=== PATIENT | female | born 1955 | race Caucasian/White ===

== ENCOUNTER 2016-09-17 11:33 | Emergency (ER) | payer OTHER ==
[~2016-09-17] VITALS: Ht 175.3 cm; Wt 70.0 kg
[~2016-09-17 11:33] MED LIST: ASPI325T PO; ESTR0.5T9 PO; FISH1000 PO; TAB-TAB PO; VITA500T10 PO; [UNRECOGNIZED DRUG - OTHER]
[2016-09-17 11:35] VITALS: BP 167/74; PULSE 58; RESP 24; TEMP 97.7; O2SAT 100
[2016-09-17] MEDS ORDERED: SODIUM CHLORIDE 0.9% FLUSH 5 ML FLUSH IVF PRN (11:45)
[2016-09-17 12:05] VITALS: RESP 18; O2SAT 99
--- NOTE | 2016-09-17 12:28 | PD ---
HPI Chief Complaint: GI Complaint Time Seen by Provider: 11:41 Travel History International Travel<30 days: No Contact w/Intl Traveler<30days: No Traveled to known affect area: No History of Present Illness HPI Patient is a 60-year-old female with abdominal cramping on and off for the past 6-8 months presents emergency department for evaluation of acute abdominal cramping starting yesterday. Patient states it primarily in the left lower quadrant. Patient states she's been seen by floor tiling professional who states that something is running her abdomen but they have not been able to find out what yet. She does endorse intermittent diarrhea as well as nausea and nonbilious nonbloody vomiting. Patient states she's not had any recently however.. States that her gastrologist put her on MiraLAX to help her with her regulation. States the pain waxes and wanes. PFSH Past Medical History Diabetes: No Gastrointestinal Disorders: Yes ("GAS PROBLEMS") Hypertension: No Past Surgical History Abdominal Surgery: Yes (HYSTERECTOMY) Hysterectomy: Yes Other Surgery: Yes (GOITER REMOVAL, HEMMORHOIDECTOMY) Social History Alcohol Use: Yes (OCCASIONAL) Tobacco Use: No Substance Use: No Allergies-Medications (Allergen,Severity, Reaction): Coded Allergies: No Known Allergies (Unverified , 01/07/09) Reported Meds & Prescriptions Reported Meds & Active Scripts Active Zofran Odt (Ondansetron Odt) 4 Mg Tab 4 Mg SL Q6HR PRN Bentyl (Dicyclomine HCl) 20 Mg Tab 20 Mg PO TID PRN Reported Fish Oil 1000 mg ([place]-3 Fatty Acids) 1 Cap Cap 1,000 Mg PO DAILY Multi Vitamin (Multiple Vitamin) 1 Tab Tab 1 Tab PO DAILY Estrace (Estradiol) 1 Mg Tab 1 Mg PO DAILY Aspirin Adult Low Strength (Aspirin) 81 Mg Tabdr 81 Mg PO EVERY OTHER DAY Vitamin C (Ascorbic Acid) 500 Mg Tab 500 Mg PO DAILY Review of Systems Except as stated in HPI: all other systems reviewed are Neg Physical Exam Narrative GENERAL: Well developed well-nourished no apparent distress SKIN: Warm and dry. HEAD: Atraumatic. Normocephalic. EYES: Pupils equal and round. No scleral icterus. No injection or drainage. ENT: No nasal bleeding or discharge. Mucous membranes pink and moist. NECK: Trachea midline. No JVD. CARDIOVASCULAR: Regular rate and rhythm. No murmur appreciated. RESPIRATORY: No accessory muscle use. Clear to auscultation. Breath sounds equal bilaterally. GASTROINTESTINAL: Abdomen soft, non-tender, nondistended. Hepatic and splenic margins not palpable. MUSCULOSKELETAL: No obvious deformities. No clubbing. No cyanosis. No edema. NEUROLOGICAL: Awake and alert. No obvious cranial nerve deficits. Motor grossly within normal limits. Normal speech. PSYCHIATRIC: Appropriate mood and anxious affect; insight and judgment normal. Data Data Last Documented VS Vital Signs Date Time Temp Pulse Resp B/P Pulse Ox O2 Delivery O2 Flow Rate FiO2 09/17/16 14:30 55 18 151/69 100 Room Air 09/17/16 11:35 97.7 Orders Complete Blood Count With Diff (09/17/16 11:43) Comprehensive Metabolic Panel (09/17/16 11:43) Lipase (09/17/16 11:43) Prothrombin Time / Inr (Pt) (09/17/16 11:43) Act Partial Throm Time (Ptt) (09/17/16 11:43) Urinalysis - C+S If Indicated (09/17/16 11:43) Iv Access Insert/Monitor (09/17/16 11:43) Ecg Monitoring (09/17/16 11:43) Oximetry (09/17/16 11:43) Sodium Chloride 0.9% Flush (Ns Flush) (09/17/16 11:45) Electrocardiogram (09/17/16 11:43) Ct Abd/Pel W Iv Contrast(Rout) (09/17/16 ) Iohexol 350 Inj (Omnipaque 350 Inj) (09/17/16 15:17) Cath For Specimen (09/17/16 15:43) Labs Laboratory Tests Test 09/17/16 09/17/16 12:15 16:30 White Blood Count 11.5 TH/MM3 Red Blood Count 4.41 MIL/MM3 Hemoglobin 13.6 GM/DL Hematocrit 40.3 % Mean Corpuscular Volume 91.2 FL Mean Corpuscular Hemoglobin 30.9 PG Mean Corpuscular Hemoglobin 33.8 % Concent Red Cell Distribution Width 12.9 % Platelet Count 255 TH/MM3 Mean Platelet Volume 8.4 FL Neutrophils (%) (Auto) 93.9 % Lymphocytes (%) (Auto) 3.7 % Monocytes (%) (Auto) 2.3 % Eosinophils (%) (Auto) 0.0 % Basophils (%) (Auto) 0.1 % Neutrophils # (Auto) 10.8 TH/MM3 Lymphocytes # (Auto) 0.4 TH/MM3 Monocytes # (Auto) 0.3 TH/MM3 Eosinophils # (Auto) 0.0 TH/MM3 Basophils # (Auto) 0.0 TH/MM3 CBC Comment DIFF FINAL Differential Comment Prothrombin Time 11.3 SEC Prothromb Time International 1.0 RATIO Ratio Activated Partial 26.1 SEC Thromboplast Time Sodium Level 142 MEQ/L Potassium Level 3.4 MEQ/L Chloride Level 102 MEQ/L Carbon Dioxide Level 29.7 MEQ/L Anion Gap 10 MEQ/L Blood Urea Nitrogen 9 MG/DL Creatinine 0.82 MG/DL Estimat Glomerular Filtration 72 ML/MIN Rate Random Glucose 112 MG/DL Calcium Level 8.8 MG/DL Total Bilirubin 0.4 MG/DL Aspartate Amino Transf 22 U/L (AST/SGOT) Alanine Aminotransferase 25 U/L (ALT/SGPT) Alkaline Phosphatase 55 U/L Total Protein 7.7 GM/DL Albumin 4.1 GM/DL Lipase 68 U/L Urine Color YELLOW Urine Turbidity CLEAR Urine pH 6.5 Urine Specific [place] GREATER THAN 1.050 Urine Protein TRACE mg/dL Urine Glucose (UA) NEG mg/dL Urine Ketones 150 mg/dL Urine Occult Blood SMALL Urine Nitrite NEG Urine Bilirubin NEG Urine Urobilinogen LESS THAN 2.0 MG/DL Urine Leukocyte Esterase NEG Urine RBC 7 /hpf Urine Squamous Epithelial 3 /hpf Cells Urine Bacteria RARE /hpf Microscopic Urinalysis Comment CULT NOT INDICATED MDM Medical Decision Making Medical Screen Exam Complete: Yes Emergency Medical Condition: Yes Interpretation(s) EKG shows normal sinus rhythm with a normal axis and normal R-wave progression. There is sinus arrhythmia. No concerning ST-T changes. Intervals within normal limits. This normal EKG. Differential Diagnosis Acute on chronic abdominal pain, gastritis, gastroenteritis, diverticulitis, diverticulosis, irritable bowel syndrome. Narrative Course Primary care physician is Stephanie Pina, seen by GI Dr. Castellon. Patient roomed emergency department, her abdomen exam is benign. Labs showed an elevated white blood count 11.5 with 93.9% neutrophil predominance, given her age and the neutrophil predominance will pursue a CAT scan of her abdomen. CMP within normal limits, Last 24 hours Impressions Abdomen/Pelvis CT 09/17/16 0000 Signed Impressions: Service Date/Time: Saturday, September 17, 2016 15:12 - CONCLUSION: Free fluid in the pelvis predominantly within the right adnexa. Absent uterus consistent with prior hysterectomy. High density material identified in the stomach and small intestinal tract. No evidence of acute intestinal abnormality, free air, hydronephrosis or biliary tract disease. Job Sauer MD Discuss results with the patient at length, she has several concerns regarding the fluid in her abdomen. At this time it appears to be nonspecific fluid does not appear to be infectious or bloody in etiology. Discussed she needs follow- up with her gastric enteritis for consideration of a colonoscopy and possible biopsies of her colon. At this time she is stable for discharge. Discussed return to ED criteria. Diagnosis Primary Impression: Abdominal pain Qualified Code: R10.11 - Right upper quadrant abdominal pain Med/Other Pt SpecificInfo: Prescription(s) given Scripts Ondansetron Odt (Zofran Odt)4 Mg Tab4 Mg SL Q6HR PRN (Nausea/Vomiting) #30 TAB Ref 0 Prov:Giorgio Carney MD 09/17/16 Dicyclomine (Bentyl)20 Mg Tab20 Mg PO TID PRN (ABDOMINAL CRAMPING) #20 TAB Ref 0 Prov:Giorgio Carney MD 09/17/16 Disposition: 01 DISCHARGE HOME Condition: Stable Giorgio Carney MD Sep 17, 2016 12:28
[2016-09-17 12:36] LABS: AUTOMATED NEUTROPHIL # 10.8 TH/MM3 (1.8-7.7); BASOPHIL % 0.1 % (0.0-2.0); HEMATOCRIT 40.3 % (35.0-46.0); HEMO FLAGS DIFF FINAL; LYMPH % 3.7 % (9.0-44.0); LYMPHOCYTE # 0.4 TH/MM3 (1.0-4.8); MEAN CELL VOLUME 91.2 FL (80.0-100.0); MEAN CORPUSCULAR HEMOGLOBIN 30.9 PG (27.0-34.0); MEAN CORPUSCULAR HGB CONC 33.8 % (32.0-36.0); MONO % 2.3 % (0.0-8.0); NEUT % 93.9 % (16.0-70.0); PLATELET COUNT 255 TH/MM3 (150-450); RED BLOOD COUNT 4.41 MIL/MM3 (4.00-5.30); RED CELL DISTRIBUTION WIDTH 12.9 % (11.6-17.2); WHITE BLOOD COUNT 11.5 TH/MM3 (4.0-11.0)
[2016-09-17 12:44] LABS: APTT (PATIENT) 26.1 SEC (24.3-30.1); PROTHROMBIN TIME - PATIENT 11.3 SEC (9.8-11.6)
[2016-09-17 12:50] LABS: ALT (GPT) 25 U/L (10-53); ANION GAP 10 MEQ/L (5-15); AST (GOT) 22 U/L (15-37); BICARBONATE 29.7 MEQ/L (21.0-32.0); BLOOD UREA NITROGEN 9 MG/DL (7-18); CHLORIDE 102 MEQ/L (98-107); GLOMERULAR FILTRATION RATE 72 ML/MIN (>89); POTASSIUM 3.4 MEQ/L (3.5-5.1); SODIUM (NA) 142 MEQ/L (136-145)
[2016-09-17 12:51] LABS: ALKALINE PHOSPHATASE 55 U/L (45-117); TOTAL BILIRUBIN ADULT 0.4 MG/DL (0.2-1.0)
[2016-09-17] MEDS ORDERED: FISH100020 PO (13:24)
[2016-09-17] MEDS ORDERED: ESTR1 PO (13:24)
[2016-09-17] MEDS ORDERED: VITA500T PO (13:24)
[2016-09-17] MEDS ORDERED: MULT-135 PO (13:24)
[2016-09-17] MEDS ORDERED: ASPI1TAB91 PO (13:24)
[2016-09-17 14:30] VITALS: BP 151/69; PULSE 55; RESP 18; O2SAT 100
[2016-09-17] MEDS ORDERED: IOHEXOL 350 MG/ML 10 ML VIAL (for RAD DIAG) IV ONE (15:17)
--- NOTE | 2016-09-17 15:41 | RADRPT ---
EXAM DATE/TIME: 09/17/2016 15:12 [facility] COMPARISON: No previous studies available for comparison. INDICATIONS : Left lower quadrant pain for several years. IV CONTRAST: 75 cc Omnipaque 350 (iohexol) IV ORAL CONTRAST: No oral contrast ingested. RADIATION DOSE: 6.94 CTDIvol (mGy) MEDICAL HISTORY : None SURGICAL HISTORY : Hysterectomy. Hemorrhoidectomy. ENCOUNTER: Initial ACUITY: >1 yr PAIN SCALE: 5/10 LOCATION: Left lower quadrant TECHNIQUE: Volumetric scanning of the abdomen and pelvis was performed. Using automated exposure control and ad justment of the mA and/or kV according to patient size, radiation dose was kept as low as reasonably achievable to obtain optimal diagnostic quality images. FINDINGS: LOWER LUNGS: The visualized lower lungs are clear. LIVER: Homogeneous density without lesion. There is no dilation of the biliary tree. No calcified gallston es. SPLEEN: Normal size without lesion. PANCREAS: Within normal limits. KIDNEYS: Normal in size and shape. There is no mass, stone or hydronephrosis. ADRENAL GLANDS: Within normal limits. VASCULAR: There is no aortic aneurysm. BOWEL/MESENTERY: High density material is identified in the stomach and several small bowel loops. The stomach, small bowel, and colon demonstrate no acute abnormality. There is no free intraperitoneal air or fluid. ABDOMINAL WALL: Within normal limits. RETROPERITONEUM: There is no lymphadenopathy. BLADDER: No wall thickening or mass. REPRODUCTIVE: Uterus has been removed. There is free fluid in the pelvis predominantly within the right adnexal reg ion. INGUINAL: There is no lymphadenopathy or hernia. MUSCULOSKELETAL: Significant facet arthropathy is seen in the lower lumbar spine. There no acute bony abnormalities. CONCLUSION: Free fluid in the pelvis predominantly within the right adnexa. Absent uterus consistent with prior hysterectomy. High density material identified in the stomach and small intestinal tract. No evidence of acute intestinal abnormality, free air, hydronephrosis or biliary tract disease. Job Sauer MD on September 17, 2016 at 15:33 Board Certified Radiologist. This report was verified electronically.
[2016-09-17] MEDS ORDERED: BENT20TA PO (17:01)
[2016-09-17] MEDS ORDERED: ZOFR4TAB3 SL (17:01)
[2016-09-17 17:10] LABS: BACTERIA, URINE RARE /hpf; BLOOD, URINE SMALL (NEG); COMMENT (UR) CULT NOT INDICATED; CULTURE IF INDICATED CULT NOT INDICATED; GLUCOSE,URINE NEG (NEG); KETONE, URINE 150 mg/dL (NEG); NITRITE,URINE NEG (NEG); PH, URINE 6.5 (5.0-8.5); SQUAMOUS EPITHELIAL CELL URINE 3 /hpf (0-5); URINE COLOR YELLOW (YELLW/STRAW)
--- NOTE | 2016-09-17 18:01 | EKG ---
Date Performed: 09/17/2016 Time Performed: 10:12:35 PTAGE: 60 years EKG: Sinus rhythm WITH SINUS ARRHYTHMIA NORMAL ECG NO SIGNIFICANT CHANGE FROM PRIOR ELECTROCARDIOGRAM. PREVIOUS TRACING : 01/07/2009 06.41 DOCTOR: Augusto Pearson Interpretating Date/Time 09/17/2016 17:59:14
== END 2016-09-17 18:27 | disposition home or self-care (01) ==
LOC: NEPA 11:33
DX: R10.11 Right upper quadrant pain (principal); R10.32 Left lower quadrant pain; Z87.19 Personal history of other diseases of the digestive system
CPT/HCPCS: 74177; 80053; 81001; 83690; 85025; 85610; 85730; 93005; 99284; Q9967